=== PATIENT | female | born 1980 | race Caucasian/White ===

== ENCOUNTER 2025-03-12 18:07 | Emergency (ER) | payer MEDICAID ==
[~2025-03-12] VITALS: Ht 167.6 cm; Wt 84.0 kg
[2025-03-12 18:09] VITALS: O2SAT 98
[2025-03-12 18:40] VITALS: TEMP 36.8
[2025-03-12 19:04] LABS: BASOPHILS % 0.6 % (0.0-2.0); EOSINOPHILS % 4.3 % (0.0-5.0); HEMATOCRIT. 27.2 % (36.0-48.0); HEMOGLOBIN. 8.5 g/dL (12.0-16.0); LYMPHOCYTES % 21.7 % (20.0-50.0); MEAN PLATELET VOLUME 8.6 fl (7.4-10.4); MONOCYTES % 4.2 % (2.0-8.0); NEUTROPHILS % 69.2 % (40.0-76.0); PLATELET 372 x1000/uL (130-400); RED BLOOD CELL COUNT 3.97 mill/uL (4.2-5.4); RED CELL DISTRIBUTION WIDTH 19.3 % (11.6-14.6)
[2025-03-12 19:05] LABS: ADD RBC MORPHOLOGY YES
[2025-03-12 19:13] LABS: CREATININE 0.5 mg/dL (0.6-1.0)
[2025-03-12 19:14] LABS: UREA NITROGEN BLOOD 11 mg/dL (9-23)
[2025-03-12 19:15] LABS: ASPARTATE AMINOTRANSFERASE 9 IU/L (<34); CLARITY URINE CLEAR (CLEAR); COLOR URINE YELLOW (YELLOW); GLUCOSE URINE NEGATIVE (NEGATIVE); KETONES URINE NEGATIVE (NEGATIVE); LEUKOCYTE ESTERASE URINE NEGATIVE (NEGATIVE); NITRITE URINE NEGATIVE (NEGATIVE); OCCULT BLOOD URINE NEGATIVE (NEGATIVE); PH URINE 8.0 (4.5-8.0); PROTEIN URINE NEGATIVE (NEGATIVE); SPECIFIC GRAVITY URINE 1.006 (1.005-1.030); UROBILINOGEN URINE 0.2 E.U./dL (0.2-1.0)
[2025-03-12 19:16] LABS: BILIRUBIN DIRECT < 0.1 mg/dL (<=3.0); BILIRUBIN TOTAL 0.2 mg/dL (0.1-1.0); PROTEIN TOTAL 6.9 g/dL (6.0-8.3)
[2025-03-12 19:25] LABS: HCG SCREEN NEGATIVE
[2025-03-12 19:30] LABS: PLATELET ESTIMATE NORMAL
[2025-03-12 21:39] VITALS: BP 113/68; PULSE 86; RESP 20; O2SAT 100
== END 2025-03-12 21:54 | disposition short-term general hospital (02) ==
LOC: ER 18:07
DX: R53.1 Weakness (principal); M19.90 Unspecified osteoarthritis, unspecified site
CPT/HCPCS: 80076; 80048; 81003; 84703; 85025; 36415; 93005; 99285; Z7610 ×2